=== PATIENT | female | born 1990 | race African-American/Black ===

== ENCOUNTER 2021-05-26 04:18 | Emergency (ER) | payer MEDICAID ==
[~2021-05-26] VITALS: Ht 165.1 cm; Wt 61.2 kg
[2021-05-26 05:46] LABS: Urine Bacteria FEW /hpf (None Seen); Urine Blood 1+ /uL (Negative); Urine Mucus FEW (None Seen); Urine Specific Gravity 1.023 (1.001-1.035); Urine WBC 2 /hpf (0 - 5)
[2021-05-26 07:16] LABS: Basophils # (auto) 0.1 10 ^3/uL (0-0.2); Basophils % (auto) 0.7 % (0.0-2.0); Eosinophils # (auto) 0 10 ^3/uL (0-0.8); Eosinophils % (auto) 0.4 % (0.0-7.0); Hematocrit 39.4 % (36.0-46.0); Hemoglobin 12.8 g/dL (12.2-16.2); Lymphocytes # (auto) 2.2 10 ^3/uL (0.4-5.4); Lymphocytes % (auto) 30.6 % (10.0-50.0); Mean Corpuscular Hemoglobin 27.5 pg (28.0-32.0); Mean Corpuscular Hgb Conc. 32.6 g/dL (32.0-36.0); Mean Corpuscular Volume 84.2 fL (80.0-100.0); Monocytes # (auto) 0.4 10 ^3/uL (0-1.3); Monocytes % (auto) 5.1 % (0.0-12.0); Neutrophils # (auto) 4.6 10 ^3/uL (1.6-8.6); Neutrophils % (auto) 63.2 % (37.0-80.0); Red Blood Cells 4.68 10^6/uL (4.0-5.20); White Blood Cell 7.2 10^3/uL (4.4-10.8)
[2021-05-26 07:36] LABS: Potassium 4.2 mmol/L (3.5-5.1)
[2021-05-26 07:41] LABS: Albumin 4.1 g/dL (3.4-5.0); BUN/Creatinine Ratio 7.8; Bilirubin, Total 0.9 mg/dL (0.2-1.0)
[2021-05-26 11:57] VITALS: BP 139/90
== END 2021-05-26 11:59 | disposition home or self-care (01) ==
LOC: ER 04:18
DX: O20.0 Threatened abortion (principal); Z3A.01 Less than 8 weeks gestation of pregnancy
CPT/HCPCS: 36415; 76801; 76817; 80053; 81001; 84702; 85025